=== PATIENT | female | born 1940 | race Caucasian/White ===

== ENCOUNTER 2017-07-26 07:11 | Day surgery (SDC) | payer MEDICARE, BC ==
[~2017-07-26 07:11] MED LIST: PROPOFOL 500 MG/50 ML EMU IV ONE
[2017-07-26 08:44] VITALS: TEMP 97.4
[2017-07-26 09:11] VITALS: RESP 20
[2017-07-26 09:18] VITALS: BP 162/78; PULSE 64; O2SAT 95
== END 2017-07-26 09:33 | disposition home or self-care (01) | DRG 951 ==
LOC: SURG 07:11
PROVIDERS: ATTEND Internal Medicine Gastroenterology
DX: Z12.11 Encounter for screening for malignant neoplasm of colon (principal); E11.9 Type 2 diabetes mellitus without complications; D12.8 Benign neoplasm of rectum; Z80.0 Family history of malignant neoplasm of digestive organs; Z86.010 Personal history of colon polyps; K57.30 Diverticulosis of large intestine without perforation or abscess without bleeding; K64.8 Other hemorrhoids
CPT/HCPCS: 82962; J2704